=== PATIENT | male | born 1985 | race Caucasian/White ===

== ENCOUNTER 2024-06-30 18:00 | Emergency (ER) | payer SELFPAY ==
[~2024-06-30] VITALS: Ht 170.2 cm; Wt 80.0 kg
[2024-06-30] MEDS: HALOPERIDOL LACTATE 5MG/ML VIAL IM ONE (18:30)
[2024-06-30] MEDS: LORAZEPAM 2MG/ML INJ IM ONE (18:30)
[2024-06-30 18:56] LABS: EOSINOPHILS % 0.4 % (0.0-5.0); HEMATOCRIT. 46.2 % (42.0-52.0); HEMOGLOBIN. 15.7 g/dL (14.0-18.0); LYMPHOCYTES % 28.3 % (20.0-50.0); MEAN CORPUSCULAR HEMOGLOBIN 31.6 pg (28.0-32.0); MEAN CORPUSCULAR VOLUME 93.1 fL (80.0-94.0); MEAN PLATELET VOLUME 9.1 fl (7.4-10.4); MONOCYTES % 4.9 % (2.0-8.0); NEUTROPHILS % 65.4 % (40.0-76.0); PLATELET 272 x1000/uL (130-400); RED BLOOD CELL COUNT 4.96 mill/uL (4.7-6.1); RED CELL DISTRIBUTION WIDTH 13.4 % (11.6-14.6); WHITE BLOOD COUNT 8.9 x1000/uL (4.5-11.0)
[2024-06-30] MEDS: DIPHENHYDRAMINE 50MG/ML VIAL IM PRN (19:02)
[2024-06-30 19:04] LABS: CHLORIDE 104 mEq/L (98-107); POTASSIUM 3.7 mEq/L (3.5-5.1); SODIUM 141 mEq/L (136-145)
[2024-06-30 19:05] LABS: CARBON DIOXIDE 20 mEq/L (21-32)
[2024-06-30 19:06] LABS: CALCIUM 9.7 mg/dL (8.7-10.4)
[2024-06-30 19:10] LABS: CREATININE 1.2 mg/dL (0.6-1.3)
[2024-06-30 19:11] LABS: ETHANOL BLOOD 219 mg/dL (<10); GLUCOSE 235 mg/dL (70-105); UREA NITROGEN BLOOD 14 mg/dL (9-23)
[2024-06-30 19:12] LABS: ACETAMINOPHEN < 2 ug/mL (10-30)
[2024-06-30 20:12] VITALS: O2SAT 99
[2024-06-30 22:52] LABS: CLARITY URINE CLEAR (CLEAR); COLOR URINE YELLOW (YELLOW); GLUCOSE URINE 2+ (NEGATIVE); KETONES URINE 1+ (NEGATIVE); LEUKOCYTE ESTERASE URINE NEGATIVE (NEGATIVE); NITRITE URINE NEGATIVE (NEGATIVE); OCCULT BLOOD URINE NEGATIVE (NEGATIVE); PH URINE 5.5 (4.5-8.0); PROTEIN URINE 1+ (NEGATIVE); SPECIFIC GRAVITY URINE 1.017 (1.005-1.030); UROBILINOGEN URINE 0.2 E.U./dL (0.2-1.0)
[2024-06-30 22:59] LABS: *AMPHETAMINES SCREEN URINE NEGATIVE (NEGATIVE); *BARBITURATES SCREEN URINE NEGATIVE (NEGATIVE); *BENZODIAZEPINES SCREEN URINE PRESUMPTIVE POSITIVE (NEGATIVE); *COCAINE SCREEN URINE NEGATIVE (NEGATIVE)
[2024-06-30 23:00] LABS: CANNABINOID URINE SCREEN PRESUMPTIVE POSITIVE (NEGATIVE); ECSTASY MDMA SCREEN URINE NEGATIVE (NEGATIVE); METHADONE URINE SCREEN NEGATIVE (NEGATIVE); OPIATES URINE SCREEN NEGATIVE (NEGATIVE); PHENCYCLIDINE URINE SCREEN NEGATIVE (NEGATIVE)
[2024-06-30 23:06] LABS: BACTERIA URINE NONE SEEN; RBC URINE NONE SEEN /hpf (0-2); SQUAMOUS EPITHELIAL CELL URINE RARE /lpf (RARE/1+); WBC URINE 0-2 /hpf (0-2)
[2024-07-01 08:05] VITALS: BP 109/72; PULSE 83; RESP 16; TEMP 36.8; O2SAT 99
== END 2024-07-01 11:30 | disposition home or self-care (01) ==
LOC: ER 18:00
DX: S00.93XA Contusion of unspecified part of head, initial encounter (principal); S00.01XA Abrasion of scalp, initial encounter; F32.A Depression, unspecified; F10.90 Alcohol use, unspecified, uncomplicated; Z20.822 Contact with and (suspected) exposure to COVID-19; Z79.899 Other long term (current) drug therapy; X58.XXXA Exposure to other specified factors, initial encounter; Y93.89 Activity, other specified; Y92.89 Other specified places as the place of occurrence of the external cause; Y99.8 Other external cause status; Y90.9 Presence of alcohol in blood, level not specified
CPT/HCPCS: 80305; 80048; 81003; 80307; 80329; 80320; 85025; 36415; 70450; 70486; 96372; 99291; 87426; J1630; J2060; G0480